=== PATIENT | male | born 1965 | race Hispanic/Latino ===

== ENCOUNTER 2023-03-07 14:13 | Observation (INO) | payer BC ==
[2023-03-07 15:25] LABS: #Basophils 0.1 thou/uL (0.0-0.2); #Eosinphils 0.2 thou/uL (0.0-0.7); #Lymphocytes 3.9 thou/uL (1.20-3.40); #Monocytes 0.6 thou/uL (0.11-0.59); #Neutrophils 3.8 thou/uL (1.40-6.50); %Basophils 0.8 % (0.0-1.0); %Eosinophils 1.8 % (0.0-10.0); %Lymphocytes 45.4 % (21.0-51.0); %Monocytes 7.2 % (0.0-10.0); %Neutrophils 44.9 % (42.0-75.0); Hemoglobin 19.1 g/dL (14.0-18.0); Mean Corpuscular HGB CONC 34.5 g/dL (32.0-36.0); Mean Corpuscular Hemoglobin 33.1 pg (27.0-31.0); Mean Corpuscular Volume 95.9 fl (78.0-98.0); Platelet Count 230 10x3/uL (130-400); RBC Distribution Width 12.2 % (11.5-14.5); Red Blood Cell (RBC) Count 5.76 mill/uL (4.70-6.10); White Blood Cell (WBC) Count 8.5 10x3/uL (4.8-10.8)
[2023-03-07 15:50] LABS: ALT (SGPT) 25 U/L (8-55); AST (SGOT) 19 U/L (5-34); Albumin 4.3 g/dL (3.5-5.0); Alkaline Phosphatase 80 U/L (40-110); Anion Gap 13 mmol/L (10-20); BUN (Urea Nitrogen) 17 mg/dL (8.4-25.7); Bilirubin, Total 0.5 mg/dL (0.2-1.2); Calc. Creatinine Clearance 0 mL/min (70-130); Calcium 9.7 mg/dL (7.8-10.44); Carbon Dioxide 24 mmol/L (22-29); Chloride 107 mmol/L (98-107); Estimated GFR 53; Globulin 3.4 g/dL (2.4-3.5); Glucose 125 mg/dL (70-105); Lipase 65 U/L (8-78); Magnesium 2.2 mg/dL (1.6-2.6); Potassium 4.6 mmol/L (3.5-5.1); Protein, Total 7.7 g/dL (6.0-8.3); Sodium 139 mmol/L (136-145)
[2023-03-07] MEDS ORDERED: Digoxin 0.5 MG/2 ML AMP ONE ×2 (18:14→23:52)
[2023-03-07] MEDS ORDERED: Ondansetron ODT 4 MG TAB PO PRN (18:42)
[2023-03-07] MEDS ORDERED: Ondansetron PF 4 MG/2 ML Vial IVP PRN (18:42)
[2023-03-07] MEDS ORDERED: Acetaminophen 325 MG TAB PO PRN (18:42)
[2023-03-07 19:53] LABS: Free T4 (Free Thyroxine) 1.01 ng/dL (0.70-1.48); Thyroid Stimulating Hormone 0.6816 uIU/mL (0.35-4.94)
[2023-03-07 21:03] LABS: Phosphorus 3.3 mg/dL (2.3-4.7)
[2023-03-07] MEDS: Lactated Ringer's 1,000 ML IV SCH (22:16)
[2023-03-08] MEDS ORDERED: Metoprolol Tartrate 5 MG/5 ML VIAL IVP SCH ×2 (01:14→09:30)
[2023-03-08] MEDS ORDERED: Metoprolol Tartrate 5 MG/5 ML VIAL ONE ×2 (01:26→09:24)
[2023-03-08 05:57] VITALS: TEMP 97.9
[2023-03-08] MEDS ORDERED: Digoxin 0.5 MG/2 ML AMP SLOW IVP SCH (06:00)
[2023-03-08] MEDS: Levothyroxine Sodium 100 MCG TAB PO SCH ×2 (06:07→09:30)
[2023-03-08] MEDS ORDERED: Diltiazem 125 MG/25 ML SDV ONE (07:10)
[2023-03-08 07:26] LABS: #Basophils 0.1 thou/uL (0.0-0.2); #Eosinphils 0.2 thou/uL (0.0-0.7); #Lymphocytes 4.9 thou/uL (1.20-3.40); #Monocytes 0.7 thou/uL (0.11-0.59); #Neutrophils 3.9 thou/uL (1.40-6.50); %Basophils 1.1 % (0.0-1.0); %Eosinophils 1.8 % (0.0-10.0); %Lymphocytes 49.8 % (21.0-51.0); %Monocytes 7.5 % (0.0-10.0); %Neutrophils 39.8 % (42.0-75.0); Hemoglobin 18.9 g/dL (14.0-18.0); Mean Corpuscular HGB CONC 33.7 g/dL (32.0-36.0); Mean Corpuscular Hemoglobin 31.8 pg (27.0-31.0); Mean Corpuscular Volume 94.4 fl (78.0-98.0); Mean Platelet Volume 7.9 fL (7.4-10.4); Platelet Count 218 10x3/uL (130-400); RBC Distribution Width 12.2 % (11.5-14.5); Red Blood Cell (RBC) Count 5.94 mill/uL (4.70-6.10); White Blood Cell (WBC) Count 9.9 10x3/uL (4.8-10.8)
[2023-03-08] MEDS: Diltiazem 125 MG, Admixture Fee 1 EACH in Sodium Chloride 0.9% 100 ML IVPB SCH ×3 (07:44→09:20)
[2023-03-08 07:49] LABS: Anion Gap 11 mmol/L (10-20); BUN (Urea Nitrogen) 13 mg/dL (8.4-25.7); Calc. Creatinine Clearance 0 mL/min (70-130); Calcium 9.2 mg/dL (7.8-10.44); Carbon Dioxide 27 mmol/L (22-29); Chloride 105 mmol/L (98-107); Estimated GFR 54; Glucose 109 mg/dL (70-105); Potassium 4.7 mmol/L (3.5-5.1); Sodium 138 mmol/L (136-145)
[2023-03-08] MEDS: Lactated Ringer's 1,000 ML IV SCH (09:30)
[2023-03-08 13:02] VITALS: BP 122/95
[2023-03-08] MEDS ORDERED: PROPOFOL 200 MG/20 ML VIAL ONE (13:35)
[2023-03-08] MEDS ORDERED: Lidocaine 1% PF 5 ML VIAL ONE (13:35)
== END 2023-03-08 15:54 | disposition home or self-care (01) ==
LOC: ERS 14:13 → ERHOLD 18:30
PROVIDERS: ADMIT Student in an Organized Health Care Education/Training Program; ATTEND Student in an Organized Health Care Education/Training Program
PROC: B246ZZ4 Ultrasonography of Right and Left Heart, Transesophageal (ICD-10-PCS; principal; 2023-03-08)
PROC: 5A2204Z Restoration of Cardiac Rhythm, Single (ICD-10-PCS; 2023-03-08)
DX: I48.92 Unspecified atrial flutter (principal); I07.1 Rheumatic tricuspid insufficiency; I70.0 Atherosclerosis of aorta; E03.9 Hypothyroidism, unspecified; E78.5 Hyperlipidemia, unspecified; D75.1 Secondary polycythemia; Z79.890 Hormone replacement therapy; Z79.899 Other long term (current) drug therapy
CPT/HCPCS: 36415; 71045; 80048; 80053; 83690; 83735; 84100; 84439; 84443; 84484; 85025; 92960; 93005; 93010; 93306; 93312; 96372; 96374; 96375; 96376; G0378; J1160; J1650; J2704; J3490; J7120

== ENCOUNTER 2023-03-27 15:11 | Outpatient (CLI) | payer BC | END 2023-03-27 15:12 | disposition home or self-care (01) | LOC: ULT 15:11 | PROVIDERS: ATTEND Family Medicine | DX: R94.4 Abnormal results of kidney function studies (principal) | CPT/HCPCS: 76770 ==

== ENCOUNTER 2023-07-03 11:22 | Observation (INO) | payer BC ==
[2023-07-03 12:33] LABS: #Basophils 0.1 thou/uL (0.0-0.2); #Eosinphils 0.1 thou/uL (0.0-0.7); #Monocytes 0.8 thou/uL (0.11-0.59); #Neutrophils 4.6 thou/uL (1.40-6.50); %Basophils 0.6 % (0.0-1.0); %Eosinophils 1.1 % (0.0-10.0); %Lymphocytes 44.8 % (21.0-51.0); %Monocytes 8.2 % (0.0-10.0); Hematocrit 60.1 % (42.0-52.0); Hemoglobin 20.6 g/dL (14.0-18.0); Mean Corpuscular HGB CONC 34.3 g/dL (32.0-36.0); Mean Corpuscular Hemoglobin 31.8 pg (27.0-31.0); Mean Corpuscular Volume 92.9 fl (78.0-98.0); Mean Platelet Volume 11.1 fL (7.4-10.4); Platelet Count 254 10x3/uL (130-400); RBC Distribution Width 13.1 % (11.5-14.5); Red Blood Cell (RBC) Count 6.47 mill/uL (4.70-6.10); White Blood Cell (WBC) Count 10.1 10x3/uL (4.8-10.8)
[2023-07-03] MEDS ORDERED: dilTIAZem 125 MG/25 ML SDV ONE (12:36)
[2023-07-03] MEDS ORDERED: dilTIAZem 25 MG/5 ML VIAL ONE (12:36)
[2023-07-03 12:58] LABS: ALT (SGPT) 22 U/L (8-55); AST (SGOT) 18 U/L (5-34); Albumin 4.7 g/dL (3.5-5.0); Alkaline Phosphatase 79 U/L (40-110); Anion Gap 13 mmol/L (10-20); BUN (Urea Nitrogen) 23 mg/dL (8.4-25.7); Bilirubin, Total 0.7 mg/dL (0.2-1.2); Calc. Creatinine Clearance 0 mL/min (70-130); Calcium 10.2 mg/dL (7.8-10.44); Carbon Dioxide 26 mmol/L (22-29); Chloride 104 mmol/L (98-107); Estimated GFR 47; Globulin 3.9 g/dL (2.4-3.5); Glucose 97 mg/dL (70-105); Magnesium 2.1 mg/dL (1.6-2.6); Potassium 4.2 mmol/L (3.5-5.1); Protein, Total 8.6 g/dL (6.0-8.3); Sodium 139 mmol/L (136-145)
[2023-07-03 13:02] LABS: Troponin I Less than 0.010 ng/mL (< 0.028)
[2023-07-03] MEDS ORDERED: dilTIAZem 125 MG in Sodium Chloride 0.9% 100 ML IVPB SCH (15:45)
[2023-07-03] MEDS ORDERED: dilTIAZem 125 MG, Admixture Fee 1 EACH in Sodium Chloride 0.9% 100 ML IVPB SCH (16:00)
[2023-07-03 16:36] VITALS: BMI 27.6
[2023-07-03] MEDS: Apixaban 5 MG TAB PO SCH (19:52)
[2023-07-03] MEDS ORDERED: clonazePAM 0.5 MG TAB PO SCH (21:00)
[2023-07-03] MEDS ORDERED: PROPAFENONE HCL 300 MG PO SCH (21:00)
[2023-07-04 05:31] LABS: #Basophils 0.1 thou/uL (0.0-0.2); #Eosinphils 0.3 thou/uL (0.0-0.7); #Monocytes 0.7 thou/uL (0.11-0.59); #Neutrophils 3.5 thou/uL (1.40-6.50); %Basophils 0.5 % (0.0-1.0); %Eosinophils 2.6 % (0.0-10.0); %Lymphocytes 53.4 % (21.0-51.0); %Monocytes 7.1 % (0.0-10.0); %Neutrophils 36.2 % (42.0-75.0); Hematocrit 52.3 % (42.0-52.0); Mean Corpuscular HGB CONC 33.7 g/dL (32.0-36.0); Mean Corpuscular Hemoglobin 31.7 pg (27.0-31.0); Mean Corpuscular Volume 94.1 fl (78.0-98.0); Mean Platelet Volume 10.6 fL (7.4-10.4); Platelet Count 213 10x3/uL (130-400); RBC Distribution Width 12.6 % (11.5-14.5); Red Blood Cell (RBC) Count 5.56 mill/uL (4.70-6.10); White Blood Cell (WBC) Count 9.7 10x3/uL (4.8-10.8)
[2023-07-04 05:44] LABS: Hemoglobin 17.6 g/dL (14.0-18.0)
[2023-07-04] MEDS ORDERED: Levothyroxine Sodium 100 MCG TAB PO SCH (06:00)
[2023-07-04 06:02] LABS: Anion Gap 12 mmol/L (10-20); BUN (Urea Nitrogen) 17 mg/dL (8.4-25.7); Calc. Creatinine Clearance 68 mL/min (70-130); Carbon Dioxide 25 mmol/L (22-29); Chloride 104 mmol/L (98-107); Estimated GFR 50; Glucose 107 mg/dL (70-105); Potassium 3.8 mmol/L (3.5-5.1); Sodium 137 mmol/L (136-145)
[2023-07-04] MEDS ORDERED: fentaNYL PF 100 MCG/2 ML SYRINGE ONE (06:23)
[2023-07-04] MEDS ORDERED: Protamine Sulfate 50 MG/5 ML VIAL ONE (06:48)
[2023-07-04] MEDS ORDERED: Heparin 10,000 UNITS/ 10 ML VIAL ONE (06:48)
[2023-07-04] MEDS ORDERED: Midazolam HCl 2 mg/2 ml Vial ONE (08:41)
[2023-07-04] MEDS ORDERED: Succinylcholine 200 MG/10 ml SYRINGE FS ONE (09:28)
[2023-07-04] MEDS ORDERED: PROPOFOL 200 MG/20 ML VIAL ONE (09:28)
[2023-07-04] MEDS ORDERED: Rocuronium Bromide 10 MG/ML (10ML VIAL) ONE (09:28)
[2023-07-04] MEDS: Apixaban 5 MG TAB PO SCH (11:47)
[2023-07-04 13:17] VITALS: BP 144/90; TEMP 97.5
== END 2023-07-04 15:08 | disposition home or self-care (01) ==
LOC: ERS 11:22 → ERHOLD 13:39 → 2SW 15:49
PROVIDERS: ADMIT Family Medicine; ATTEND Family Medicine
DX: I48.92 Unspecified atrial flutter (principal); E03.9 Hypothyroidism, unspecified; E78.5 Hyperlipidemia, unspecified; K21.9 Gastro-esophageal reflux disease without esophagitis; D75.1 Secondary polycythemia; N18.32 Chronic kidney disease, stage 3b; Z79.01 Long term (current) use of anticoagulants; Z79.890 Hormone replacement therapy; Z79.899 Other long term (current) drug therapy
CPT/HCPCS: 36415; 80048; 80053; 83735; 84443; 84484; 85025; 93005; 93010; 93613; 93653; 93662; 96365; 96366; 96376; C1731; C1759; C1760; C1894; C2630; G0378; J1644; J2250; J2704; J2720; J3490